=== PATIENT | female | born 1960 | race Caucasian/White ===

== ENCOUNTER 2021-11-29 17:19 | Inpatient (IN) | payer OTHER ==
[~2021-11-29] VITALS: Ht 160 cm; Wt 85.0 kg
[2021-11-29] MEDS ORDERED: DILTIAZEM HCL 25 MG IV ONE (17:42)
[2021-11-29] MEDS ORDERED: IV NORMAL SALINE 500 ML BAG IV ONE (17:45)
[2021-11-29] MEDS ORDERED: DILTIAZEM HCL 25 MG IV IV ONE (17:45)
[2021-11-29 17:56] LABS: HEMATOCRIT 42.4 % (31.2-41.9); MEAN CORPUSCULAR HEMOGLOBIN 27.6 uug (24.7-32.8); MEAN CORPUSCULAR VOLUME 84.6 fL (75.5-95.3); PLATELET COUNT (AUTO) 298 K/uL (179-408)
--- NOTE | 2021-11-29 17:56 | NUR ---
PT IS IN ROOM #2A. DR GALE EVALUATED THE PT.
--- NOTE | 2021-11-29 18:00 | NUR ---
A totla of 400cc urine output at this time.
[2021-11-29 18:04] LABS: CARBON DIOXIDE 22 mmol/L (21-32); CHLORIDE 105 mmol/L (98-107); CREATININE 0.9 mg/dL (0.6-1.3); GLUCOSE 193 mg/dL (74-106); POTASSIUM 3.5 mmol/L (3.5-5.1); UREA NITROGEN, BLOOD 15 mg/dL (7-18)
[2021-11-29 18:13] LABS: ALANINE AMINOTRANSFERASE 32 U/L (14-59); ALKALINE PHOSPHATASE 83 U/L (50-136); ASPARTATE AMINOTRANSFERASE 23 U/L (15-37); BILIRUBIN,DIRECT 0.1 mg/dL (0.0-0.2); BILIRUBIN,TOTAL 0.3 mg/dL (0.2-1.0); TOTAL PROTEIN, SERUM 7.7 g/dL (6.4-8.2)
[2021-11-29] MEDS ORDERED: MELO-107 PO (18:32)
[2021-11-29] MEDS ORDERED: ACET-73 PO (18:32)
[2021-11-29] MEDS ORDERED: GABA-532 PO (18:32)
[2021-11-29] MEDS ORDERED: VITAMIN D PO (18:32)
[2021-11-29] MEDS ORDERED: ALOG12.52 PO (18:32)
[2021-11-29] MEDS ORDERED: DIPH-1062 PO (18:32)
[2021-11-29] MEDS ORDERED: METF-442 PO (18:32)
[2021-11-29] MEDS ORDERED: CYAN-51 PO (18:32)
[2021-11-29] MEDS ORDERED: ASPI81TA31 PO (18:32)
[2021-11-29] MEDS ORDERED: SERT50TA PO (18:32)
[2021-11-29] MEDS ORDERED: SIMV-46 PO (18:32)
[2021-11-29] MEDS ORDERED: LISI10TA29 PO (18:32)
--- NOTE | 2021-11-29 19:03 | NUR ---
RECEIVED REPORT FROM MARICRUZ VU. PT NOTED TO BE IN BED, DENIES ANY PAIN/DISCOMFORT AT THIS TIME. AT BEDSIDE.
--- NOTE | 2021-11-29 20:02 | NUR ---
GAVE REPORT TO MARICRUZ ROE.
--- NOTE | 2021-11-29 21:25 | NUR ---
Admitted a 61 years old female with Dx Chest Pain. Patient AAOX4. Mainly Farsi speaking, can understand and speak little Nepali. Patient son Shanti translated some over the phone. Patient denies any SOB. Complain of mild chest pain stated just a little bit, but complain of lower abdominal pain 6/10 that is worst when ambulating. NSR on tele with Hr of 82/min. Routine admission care done. Plan of care initiated. Safety measure initiated and call light within reached. Dr Bernabe made aware that pt is here at the unit. Awaiting admission order from Dr Ceballos.
--- NOTE | 2021-11-29 21:33 | NUR ---
Pt. admitted to TELE , under care of Dr. Matthieu Ceballos Belongs List completed PT ADMITTED IN STABLE CONDITION, DENIED ANY PAIN/DISCOMFORT, NO SOB OR LABORED BREATHING, AFEBRILE. NO RITTER/DIZZYNESS.
[2021-11-29 21:41] VITALS: BP 130/90
[2021-11-30] VITALS: BP 108/61
[2021-11-30] MEDS ORDERED: diphenhydrAMINE 25 MG CAP PO PRN
--- NOTE | 2021-11-30 | NUR ---
Patient asleep at this time. No further complain of abdominal pain or CP. Appears comfortable. Still awaiting admission orders from Dr. Ceballos.
[2021-11-30] MEDS ORDERED: ZOLPIDEM 5 MG TABLET PO PRN (00:15)
[2021-11-30] MEDS ORDERED: REMEDY ESSENTIAL ZINC PASTE 113 GM TP PRN (00:15)
[2021-11-30] MEDS ORDERED: MAGNESIUM HYDROXIDE 30 ML LIQUID UDC PO PRN (00:15)
[2021-11-30] MEDS ORDERED: ACETAMINOPHEN 325 MG TABLET PO PRN (00:15)
[2021-11-30] MEDS ORDERED: INSULIN REGULAR, HUMAN 300 UNITS/3 ML VIAL SQ PRN ×2 (00:15)
[2021-11-30] MEDS ORDERED: INSULIN REGULAR, HUMAN 300 UNIT/3 ML VIAL SQ PRN (00:15)
[2021-11-30] MEDS ORDERED: DEXTROSE 50% 50 ML DISP.SYRIN IV PRN ×2 (00:15)
[2021-11-30] MEDS: BLOOD SUGAR DIAGNOSTIC 1 EACH STRIP VI SCH ×5 (00:22→20:17)
[2021-11-30] MEDS: METOPROLOL TARTRATE 50 MG TABLET PO SCH ×3 (00:57→20:16)
[2021-11-30] MEDS: ONDANSETRON 4 MG/2 ML VIAL IV PRN ×2 (01:00→12:19)
[2021-11-30 04:21] VITALS: BP 99/56
--- NOTE | 2021-11-30 05:35 | NUR ---
Patient slept well during the night. Denies any CP. No further complain of nausea after getting Zofran 4mg IV. IV site on left AC intact and patent. Other needs attended to and met. Dafety measure maintained and call light within reached.
[2021-11-30 06:16] LABS: HEMATOCRIT 39.1 % (31.2-41.9); MEAN CORPUSCULAR HEMOGLOBIN 28.2 uug (24.7-32.8); MEAN CORPUSCULAR VOLUME 83.7 fL (75.5-95.3); PLATELET COUNT (AUTO) 281 K/uL (179-408)
[2021-11-30 06:33] LABS: BILIRUBIN,TOTAL 0.4 mg/dL (0.2-1.0); CREATININE 0.6 mg/dL (0.6-1.3); PHOSPHOROUS 4.1 mg/dL (2.5-4.9); POTASSIUM 3.6 mmol/L (3.5-5.1); TOTAL PROTEIN, SERUM 7.1 g/dL (6.4-8.2)
[2021-11-30 06:38] LABS: IRON, SERUM 67 ug/dL (50-175)
[2021-11-30 06:59] LABS: THYROID STIMULATING HORMONE 2.937 mIU/mL (0.358-3.740)
[2021-11-30] MEDS ORDERED: BLOOD SUGAR DIAGNOSTIC 1 EACH STRIP VI SCH (07:30)
[2021-11-30] MEDS ORDERED: METFORMIN HCL 500 MG TABLET PO SCH (08:00)
--- NOTE | 2021-11-30 08:00 | NUR ---
AWAKE ALERT AND ORIENTED X3, DENIES CHEST PAIN OR SOB, SR ON MONITOR
[2021-11-30] MEDS: MELOXICAM 7.5 MG TABLET PO SCH (08:26)
[2021-11-30] MEDS: ASPIRIN 81 MG TAB.CHEW PO SCH (08:26)
[2021-11-30] MEDS: LISINOPRIL 10 MG TABLET PO SCH (08:27)
[2021-11-30] MEDS: CYANOCOBALAMIN 1,000 MCG TABLET PO SCH (08:28)
[2021-11-30] MEDS: SERTRALINE HCL 50 MG TABLET PO SCH (08:29)
[2021-11-30] MEDS ORDERED: METF-495 PO (12:07)
--- NOTE | 2021-11-30 12:30 | NUR ---
VOMITED LARGE AMOUNT OF STOMACH CONTENT, ZOFRAN GIVEN WITH GOOD RELIEF
--- NOTE | 2021-11-30 15:00 | NUR ---
SEEN BY DR SANCHEZ PLACED PATIENT ON NPO AND STARTED IVF
[2021-11-30] MEDS ORDERED: MORPHINE SULFATE 2 MG/1 ML DISP.SYRIN IV PRN (16:15)
[2021-11-30] MEDS ORDERED: ENALAPRILAT DIHYDRATE 1.25 MG/1 ML VIAL IV PRN (16:15)
[2021-11-30] MEDS ORDERED: IOHEXOL 300MG/ML 100 ML INFUS..BTL ONE (16:19)
[2021-11-30] MEDS ORDERED: SWABABLE VALVE TRANSFER SET EA MC ONE (16:19)
[2021-11-30] MEDS ORDERED: IV NORMAL SALINE 250 ML IV ONE (16:20)
[2021-11-30] MEDS: SIMVASTATIN 20 MG TABLET PO SCH (17:29)
[2021-11-30] MEDS: POTASSIUM CHLORIDE 20 MEQ in IV D5 1/2 NS 1000 ML 1,000 ML IV PRN (17:35)
[2021-11-30] MEDS ORDERED: METFORMIN XR 500 MG TAB.SR.24H PO SCH (18:00)
--- NOTE | 2021-11-30 19:30 | NUR ---
Received patient lying in bed. on bedside. Patient remains AAOx4. In no apparent distress. Denies any SOB. Complain of lower abdominal pain. Denies any nausea or vomiting. Will provide Morphine 2mg via IV PRN per order for pain. IV site on left AC intact and patent. IVF infusing. NPO status. NSR on tele with HR of 75/min. Safety measure initiated and call light within reached.
[2021-11-30 20:00] VITALS: BP 109/61
[2021-11-30] MEDS: PANTOPRAZOLE SODIUM 40 MG VIAL IV SCH (20:16)
[2021-11-30] MEDS: INSULIN REGULAR, HUMAN 300 UNIT/3 ML VIAL SQ PRN (20:18)
[2021-11-30] MEDS: GABAPENTIN 100 MG CAPSULE PO SCH (20:24)
--- NOTE | 2021-11-30 20:30 | NUR ---
Telephone call to X-ray tech/Nixon to follow up result of CT abd.
--- NOTE | 2021-11-30 20:50 | NUR ---
CT abd/pelvis result forwarded to Dr Muñoz. Awaiting for any new order.
--- NOTE | 2021-11-30 21:09 | NUR ---
Dr. Muñoz with order to place patient on clear liquid diet and start Zosyn 3.375g IV every 8 hours. Order noted and willcarry out.
[2021-11-30] MEDS ORDERED: PIPERACILLIN/TAZOBACTAM/D5W 50 ML IV ONE ×2 (21:21→21:22)
[2021-11-30] MEDS: PIPERACILLIN SODIUM/TAZOBACTAM 3.375 G in IV DEXTROSE 5% 50 ML IV SCH (21:26)
[2021-12-01] VITALS (7 sets, daily range): BP systolic 91–127; BP diastolic 44–59
[2021-12-01] MEDS: PIPERACILLIN SODIUM/TAZOBACTAM 3.375 G in IV DEXTROSE 5% 50 ML IV SCH (05:16)
--- NOTE | 2021-12-01 06:03 | NUR ---
No further complain of abdominal pain. No nausea or vomiting episode for the entire shift. Slept well. No adverse reaction noted from IV antibiotic. IVF infusing. Left AC IV site intact and patent. Needs assessed and attended to. Safety measure maintained and call light within reached.
[2021-12-01] MEDS: BLOOD SUGAR DIAGNOSTIC 1 EACH STRIP VI SCH ×4 (06:31→20:49)
[2021-12-01 07:09] LABS: HEMATOCRIT 38.8 % (31.2-41.9); MEAN CORPUSCULAR HEMOGLOBIN 27.9 uug (24.7-32.8); MEAN CORPUSCULAR VOLUME 83.5 fL (75.5-95.3); PLATELET COUNT (AUTO) 276 K/uL (179-408)
[2021-12-01 07:21] LABS: BILIRUBIN,TOTAL 0.7 mg/dL (0.2-1.0); CREATININE 0.8 mg/dL (0.6-1.3); MAGNESIUM 1.9 mg/dL (1.8-2.4); PHOSPHOROUS 4.5 mg/dL (2.5-4.9); POTASSIUM 3.8 mmol/L (3.5-5.1); TOTAL PROTEIN, SERUM 6.8 g/dL (6.4-8.2)
[2021-12-01] MEDS: PANTOPRAZOLE SODIUM 40 MG VIAL IV SCH (08:13)
[2021-12-01] MEDS: POTASSIUM CHLORIDE 20 MEQ in IV D5 1/2 NS 1000 ML 1,000 ML IV PRN (08:13)
[2021-12-01] MEDS: ASPIRIN 81 MG TAB.CHEW PO SCH (09:26)
[2021-12-01] MEDS: LISINOPRIL 10 MG TABLET PO SCH (09:27)
[2021-12-01] MEDS: METOPROLOL TARTRATE 50 MG TABLET PO SCH ×2 (09:27→20:50)
[2021-12-01] MEDS: CYANOCOBALAMIN 1,000 MCG TABLET PO SCH (09:27)
[2021-12-01] MEDS: MELOXICAM 7.5 MG TABLET PO SCH (09:27)
[2021-12-01] MEDS: SERTRALINE HCL 50 MG TABLET PO SCH (09:28)
[2021-12-01] MEDS: ONDANSETRON 4 MG/2 ML VIAL IV PRN ×2 (09:38→10:26)
[2021-12-01] MEDS: INSULIN REGULAR, HUMAN 300 UNIT/3 ML VIAL SQ PRN ×2 (12:48→17:37)
[2021-12-01] MEDS ORDERED: PIPERACILLIN SODIUM/TAZOBACTAM 3.375 G in IV DEXTROSE 5% 50 ML IV SCH (14:00)
[2021-12-01] MEDS: PIPERACILLIN SODIUM/TAZOBACTAM 3.375 G in IV DEXTROSE 5% 100 ML IV SCH ×2 (14:29→21:03)
--- NOTE | 2021-12-01 15:47 | NUR ---
Received patient resting in bed. at bedside. Patient remains AAOx4 Farsi speaking. In no apparent distress. Denies any SOB. No C/O of pain. Medicated for nausea with Zofran 4 mg IV as ordered. IV site on left AC intact and patent. IVF infusing D5 1/2 NS with 20 MEQ of Potassium . NSR on tele. Safety measure initiated able to ambulate to BR with standing by assist , call light within reached.
[2021-12-01] MEDS: SIMVASTATIN 20 MG TABLET PO SCH (17:35)
--- NOTE | 2021-12-01 19:30 | NUR ---
Received patient lying in bed. on bedside. AAOx4. In no apparent distress. Denies any pain or SOB. Denies any nausea or vomiting. IV site on left AC intact and patent. IVF infusing. Sinus anne marie on tele with HR of 58/min. Safety measure initiated and call light within reached.
--- NOTE | 2021-12-01 19:45 | NUR ---
Dr. Muñoz into visit and spoke to both pt, pt and pt son over the phone. Plan to discharge patient in [place].
[2021-12-01] MEDS: GABAPENTIN 100 MG CAPSULE PO SCH (20:49)
[2021-12-02] VITALS: BP 103/52
[2021-12-02 04:00] VITALS: BP 109/58
[2021-12-02] MEDS: PIPERACILLIN SODIUM/TAZOBACTAM 3.375 G in IV DEXTROSE 5% 100 ML IV SCH (05:00)
--- NOTE | 2021-12-02 05:23 | NUR ---
Slept well during the night. Denies any pain or SOB. No adverse reaction noted from IV antibiotic. IVF infusing. Left AC IV site intact and patent. Needs assessed and attended to. Safety measure maintained and call light within reached.
[2021-12-02] MEDS: BLOOD SUGAR DIAGNOSTIC 1 EACH STRIP VI SCH (06:35)
[2021-12-02 06:36] LABS: HEMATOCRIT 39.7 % (31.2-41.9); MEAN CORPUSCULAR HEMOGLOBIN 27.5 uug (24.7-32.8); MEAN CORPUSCULAR VOLUME 83.4 fL (75.5-95.3); PLATELET COUNT (AUTO) 268 K/uL (179-408)
[2021-12-02] MEDS ORDERED: PANTOPRAZOLE SODIUM 40 MG TABLET.DR PO SCH (07:00)
[2021-12-02 07:06] LABS: CREATININE 0.8 mg/dL (0.6-1.3); MAGNESIUM 1.9 mg/dL (1.8-2.4); PHOSPHOROUS 4.4 mg/dL (2.5-4.9); POTASSIUM 3.8 mmol/L (3.5-5.1)
[2021-12-02 09:00] VITALS: BP 98/51
[2021-12-02] MEDS: ASPIRIN 81 MG TAB.CHEW PO SCH (09:17)
[2021-12-02] MEDS: CYANOCOBALAMIN 1,000 MCG TABLET PO SCH (09:17)
[2021-12-02] MEDS: SERTRALINE HCL 50 MG TABLET PO SCH (09:17)
[2021-12-02 09:21] VITALS: BP 114/55
[2021-12-02] MEDS: LISINOPRIL 10 MG TABLET PO SCH (09:21)
[2021-12-02] MEDS: METOPROLOL TARTRATE 50 MG TABLET PO SCH (09:21)
--- NOTE | 2021-12-02 10:21 | NUR ---
Received patient resting . Patient remains AAOx4 Farsi speaking. In no apparent distress. Denies any SOB. No C/O of pain. IV site on left AC intact and patent. IVF infusing D5 1/2 NS with 20 MEQ of Potassium. Safety measure initiated able to ambulate to BR with standing by assist , call light within reached.
[2021-12-02] MEDS ORDERED: METR500T PO (10:34)
[2021-12-02] MEDS ORDERED: LEVO500T90 PO (10:34)
[2021-12-02] MEDS ORDERED: FAMO-132 PO (10:34)
--- NOTE | 2021-12-02 11:56 | NUR ---
Patient is being discharged home on few more days of oral Levaquin and Flagyl. She will restart her regular medications, and should follow-up with primary care physician .Discharge instructions all personal belonging and teaching given to patent and .Prescription was done electronically to pt prefer pharmacy IV site LAC # 20 and ID band was remove.Pt left in stable condition taken to the lobby in a W/C and was accompany by her .
[2021-12-02] MEDS ORDERED: METFORMIN XR 500 MG TAB.SR.24H PO SCH (18:00)
== END 2021-12-02 11:50 | disposition home or self-care (01) | DRG 248 ==
LOC: ER 17:21 → TELE3 21:04 → MEDSURG3 12-01 22:20
PROVIDERS: ADMIT Internal Medicine; ATTEND Internal Medicine
DX: A04.9 Bacterial intestinal infection, unspecified (principal); I47.1 Supraventricular tachycardia; E11.9 Type 2 diabetes mellitus without complications; E66.9 Obesity, unspecified; E78.5 Hyperlipidemia, unspecified; I10 Essential (primary) hypertension; Z79.82 Long term (current) use of aspirin; M19.90 Unspecified osteoarthritis, unspecified site; Z79.84 Long term (current) use of oral hypoglycemic drugs; Z68.33 Body mass index [BMI] 33.0-33.9, adult; Z20.822 Contact with and (suspected) exposure to COVID-19; R93.5 Abnormal findings on diagnostic imaging of other abdominal regions, including retroperitoneum
CPT/HCPCS: 36415; 71045; 83550; 83690; 83735; 84100; 84443; 84484; 85025; 93005; A4663; C9113; G0378; J1815; J2270; J2405; J2543; J3480; J3490; J7040; Q9967